=== PATIENT | male | born 1945 | race African-American/Black ===

== ENCOUNTER 2018-10-18 10:50 | Day surgery (SDC) | payer MEDICARE ==
[~2018-10-18 10:50] MED LIST: CHONDR SU A NA/HYALUR INTRAOC KIT (SURGICARE) ONE; EPINEPHRINE INJ/PF 1 MG/1 ML AMPULE ONE; KETOROLAC TROMETHAMINE 0.45% 4 DROP/0.4 ML DROPERETTE OD PRN; LIDOCAINE 1%/PHENYLEPHRINE 1.5% 1 ML VIAL ONE; MIDAZOLAM 2 MG/2 ML INJ ONE
[2018-10-18] MEDS: TETRACAINE HCL 0.5% OPH SOLN 0.6 ML DROPERETTE OD PRN ×3 (11:18→11:43)
[2018-10-18] MEDS: BESIFLOXACIN HCL 0.6% OPH SUSP 5 ML BOTTLE OD PRN ×4 (11:19→12:11)
[2018-10-18] MEDS ORDERED: MIDAZOLAM 2 MG/2 ML INJ ONE (11:19)
[2018-10-18] MEDS: CYCLOPENTOLATE 0.2%/PHENYLEPHRINE 1% OPH SOLN 2 ML OD PRN ×3 (11:19→11:40)
[2018-10-18] MEDS: TROPICAMIDE 1% OPH SOLN 3 ML OD PRN ×3 (11:19→11:40)
[2018-10-18] MEDS ORDERED: CHONDR SU A NA/HYALUR SOD 0.5 ML DISP.SYRIN ONE (12:02)
[2018-10-18] MEDS: TOBRAMYCIN SULFATE/DEXAMETH OPH OINTMENT 3.5 GM ONE ×2 (12:11)
== END 2018-10-18 12:52 | disposition home or self-care (01) ==
LOC: SC 10:50
PROVIDERS: ATTEND Ophthalmology
DX: H25.11 Age-related nuclear cataract, right eye (principal); H40.1132 Primary open-angle glaucoma, bilateral, moderate stage; I10 Essential (primary) hypertension
CPT/HCPCS: 66984; 0191T; C1783; V2630; J2250; J3490 ×3; A9270; J0171; J2370

== ENCOUNTER 2018-11-08 09:42 | Day surgery (SDC) | payer MEDICARE ==
[~2018-11-08 09:42] MED LIST changes: -CHONDR SU A NA/HYALUR INTRAOC KIT (SURGICARE) ONE; -EPINEPHRINE INJ/PF 1 MG/1 ML AMPULE ONE; -KETOROLAC TROMETHAMINE 0.45% 4 DROP/0.4 ML DROPERETTE OD PRN; +KETOROLAC TROMETHAMINE 0.45% 4 DROP/0.4 ML DROPERETTE OS PRN; -LIDOCAINE 1%/PHENYLEPHRINE 1.5% 1 ML VIAL ONE; -MIDAZOLAM 2 MG/2 ML INJ ONE
[2018-11-08] MEDS ORDERED: LIDOCAINE 1% INJ-PF (10 MG/ML) 30 ML SDV ONE (09:46)
[2018-11-08] MEDS ORDERED: CHONDR SU A NA/HYALUR INTRAOC KIT (SURGICARE) ONE (09:46)
[2018-11-08] MEDS ORDERED: EPINEPHRINE INJ/PF 1 MG/1 ML AMPULE ONE (09:46)
[2018-11-08] MEDS: CYCLOPENTOLATE 0.2%/PHENYLEPHRINE 1% OPH SOLN 2 ML OS PRN ×3 (10:15→10:39)
[2018-11-08] MEDS: TROPICAMIDE 1% OPH SOLN 3 ML OS PRN ×3 (10:15→10:39)
[2018-11-08] MEDS: TETRACAINE HCL 0.5% OPH SOLN 0.6 ML DROPERETTE OS PRN ×3 (10:15→10:44)
[2018-11-08] MEDS: BESIFLOXACIN HCL 0.6% OPH SUSP 5 ML BOTTLE OS PRN ×4 (10:16→11:13)
[2018-11-08] MEDS ORDERED: MIDAZOLAM 2 MG/2 ML INJ ONE (10:30)
[2018-11-08] MEDS: TOBRAMYCIN SULFATE/DEXAMETH OPH OINTMENT 3.5 GM ONE ×2 (11:13)
== END 2018-11-08 12:05 | disposition home or self-care (01) ==
LOC: SC 09:42
PROVIDERS: ATTEND Ophthalmology
DX: H25.12 Age-related nuclear cataract, left eye (principal); H40.1132 Primary open-angle glaucoma, bilateral, moderate stage; Z98.41 Cataract extraction status, right eye; I10 Essential (primary) hypertension
CPT/HCPCS: 0191T; 66984; 142; C1783; J0171; J2250; J3490; V2630

== ENCOUNTER → 2018-11-13 | Outpatient (CLI) | payer MEDICARE ==
--- NOTE | 2018-11-13 13:07 | EKG REPORT ---
SEVERITY:- BORDERLINE ECG - SINUS RHYTHM NONSPECIFIC ST-T CHANGES LATERAL LEADS : Confirmed by: Nic Puri MD 13-Nov-2018 13:06:48
== END ==
LOC: OD 10:50
PROVIDERS: ATTEND Nurse Practitioner Family
DX: I10 Essential (primary) hypertension (principal)
CPT/HCPCS: 93005; 93010

== ENCOUNTER 2019-04-27 09:41 | Emergency (ER) | payer MEDICARE ==
[2019-04-27 09:53] VITALS: BP 172/87
--- NOTE | 2019-04-27 10:19 | ER Document Report ---
HPI - HPI Time Seen by Provider: 04/27/19 10:14 Pain Level: Denies Context: Patient is a 74-year-old male presents to the emergency department with a chief complaint of a bump on his right tongue. States it started out as the size of a pimple about 2 weeks ago. He states that the area did pop and had a foul taste in his mouth but since then and is significantly grown and has become painful. Patient states that it is irregular and he is unable to put his dentures in place due to the growth and pain. He denies difficulty swallowing or throat tightness. Patient denies fever. Patient is a diabetic in which he states he takes oral medications for his diabetes. Patient denies any other complaints. States that he does not smoke or chew tobacco. Past Medical History - General Information source: Patient - Social History Smoking Status: Never Smoker Chew tobacco use (# tins/day): No Frequency of alcohol use: None Drug Abuse: None Lives with: Alone Family History: Reviewed & Not Pertinent Patient has suicidal ideation: No Patient has homicidal ideation: No - Past Medical History Cardiac Medical History: Reports: None Denies: Hx Heart Attack, Hx Hypertension Pulmonary Medical History: Reports: None Denies: Hx Asthma EENT Medical History: Reports: None Neurological Medical History: Reports: None. Denies: Hx Cerebrovascular Accident, Hx Seizures Endocrine Medical History: Reports: Hx Diabetes Mellitus Type 2 Renal/ Medical History: Reports: None. Denies: Hx Peritoneal Dialysis Malignancy Medical History: Reports None GI Medical History: Reports: None. Denies: Hx Hepatitis, Hx Hiatal Hernia, Hx Ulcer Musculoskeletal Medical History: Reports None Skin Medical History: Reports None Psychiatric Medical History: Reports: None Traumatic Medical History: Reports: None Infectious Medical History: Reports: None. Denies: Hx Hepatitis Past Surgical History: Reports: None. Denies: Hx Open Heart Surgery, Hx Pacemaker Vertical Provider Document - CONSTITUTIONAL Agree With Documented VS: Yes Exam Limitations: No Limitations General Appearance: No Apparent Distress - INFECTION CONTROL TRAVEL OUTSIDE OF THE [place] IN LAST 30 DAYS: No - HEENT HEENT: Atraumatic, Normocephalic, PERRLA Notes: Irregular appearing discolored growth on the right lateral tongue, slightly smaller than a marble. No drainage is noted. No swelling to the tongue. Airway is patent, no other lesion noted in the mouth. - NECK Neck: Normal Inspection - RESPIRATORY Respiratory: Breath Sounds Normal, No Respiratory Distress - CARDIOVASCULAR Cardiovascular: Regular Rate, Regular Rhythm - GI/ABDOMEN Gastrointestinal: Abdomen Soft, Abdomen Non-Tender - NEURO Level of Consciousness: Awake, Alert, Appropriate - DERM Integumentary: Warm, Dry, No Rash Course - Re-evaluation Re-evalutation: 04/27/19 10:18 Further investigation the bump on the right lateral tongue is suspicious for malignancy as it is irregular in appearance. It does not appear to be an abscess. I did explain to the patient the importance of following up with oral surgery or an ENT physician. I will give him multiple referrals to call for an appointment. I did explain to the patient that this will need to be removed or biopsied to rule out malignancy. I did explain to the patient to return to the emergency department if the growth started to compromise his airway or patient started to have swelling to his tongue. - Vital Signs Vital signs: Temp Pulse Resp BP Pulse Ox 99.2 F 77 16 172/87 H 98 04/27/19 09:52 04/27/19 09:52 04/27/19 09:52 04/27/19 09:52 04/27/19 09:52 Discharge - Discharge Clinical Impression: Tongue mass Condition: Stable Disposition: HOME, SELF-CARE Additional Instructions: Today you were seen in the emergency department for a bump on the tongue. The mass is suspicious for possible malignancy - such as cancer. I did refer you to our local ENT Dr. Zazueta. Please call his office today to make an appointment. The mass may need to be removed or at least biopsied. Please return to the emergency department if you develop any tongue swelling or difficulty swallowing. Referrals: JAZ CARO FNP-C [Primary Care Provider] - Follow up as needed BRANDO ZAZUETA DO [ASSOCIATE] - Follow up as needed
== END 2019-04-27 10:16 | disposition home or self-care (01) ==
LOC: ER 09:41
DX: K14.9 Disease of tongue, unspecified (principal); K08.89 Other specified disorders of teeth and supporting structures; E11.9 Type 2 diabetes mellitus without complications
CPT/HCPCS: 99282

== ENCOUNTER → 2019-06-18 | Outpatient (CLI) | payer MEDICARE ==
--- NOTE | 2019-06-18 13:45 | RADIOLOGY REPORT (SQ) ---
EXAM DESCRIPTION: U/S THYROID/SFT TISS HD NECK COMPLETED DATE/TIME: 06/18/2019 11:01 am REASON FOR STUDY: E07.89 OTHER SPECIFIED DISORDERS OF THYROID E07.89 OTHER SPECIFIED DISORDERS OF T HYROID COMPARISON: None. TECHNIQUE: Dynamic and static echols-scale images acquired of the thyroid gland. Selected additional c olor/power Doppler images recorded. All images stored to PACS. LIMITATIONS: None. FINDINGS: RIGHT LOBE: Prominent, 5.3 x 2.4 x 2 cm. Homogeneous echotexture. No cystic or solid mas ses. LEFT LOBE: Prominent, 5.2 x 2.1 x 1.8 cm. Homogeneous echotexture. No cystic or solid masses. ISTHMUS: 4.2 mm. Homogeneous echotexture. No cystic or solid masses. OTHER: No other significant finding. IMPRESSION: There is mild prominence of the thyroid. No thyroid masses are seen. TECHNICAL DOCUMENTATION: JOB ID: [id number] [employer]- All Rights Reserved Reading location - IP/workstation name: [email or web address]
== END ==
LOC: RAD 10:27
PROVIDERS: ATTEND Otolaryngology
DX: E07.89 Other specified disorders of thyroid (principal)
CPT/HCPCS: 76536

== ENCOUNTER 2020-01-11 08:32 | Day surgery (SDC) | payer MEDICARE ==
[~2020-01-11 08:32] MED LIST changes: -KETOROLAC TROMETHAMINE 0.45% 4 DROP/0.4 ML DROPERETTE OS PRN; +PROPOFOL INJ 200 MG/20 ML VIAL IV ONE
[2020-01-11] MEDS ORDERED: PROPOFOL INJ 200 MG/20 ML VIAL IV ONE (09:36)
[2020-01-11 10:35] VITALS: BP 160/91
--- NOTE | 2020-01-11 11:32 | Operative Report ---
Operative Report DATE OF SURGERY: 01/11/20 Operative Report: The risk, benefits and alternatives of the procedure including the risks of bleeding, perforation requiring surgery have been explained to the patient in detail and informed consent has been obtained. Patient is placed in a left, lateral decubital position. Timeout was called. Propofol medication is administered. Rectal examination is done which did not reveal any masses, tears or fissures. An Olympus videoscope was introduced into the patient's rectum. Scope was then carefully advanced all the way to the cecum. Cecum was identified by the usual anatomical landmarks including the ileocecal valve as well as the appendiceal office. Photodocumentation is obtained. Scope was then sequentially pulled back via the various segments of the colon including the ascending colon, hepatic lecture, transverse colon, splenic flexure, descending colon and finally into the rectosigmoid portions of the colon. Retroflexion maneuvers performed. PREOPERATIVE DIAGNOSIS: Personal history of polyp POSTOPERATIVE DIAGNOSIS: 2 transverse colon polyps removed with a snare polypectomy and retrieved. Diverticulosis without any evidence of diverticulitis. Internal hemorrhoids OPERATION: Colonoscopy with snare polypectomy SURGEON: BARBER CORDOBA ANESTHESIA: LMAC TISSUE REMOVED OR ALTERED: As noted above. COMPLICATIONS: None. ESTIMATED BLOOD LOSS: None. INTRAOPERATIVE FINDINGS: As noted above. PROCEDURE: Patient tolerated the procedure well. No immediate postprocedure complications are noted. Patient is discharged in good condition. Discharge date 01/11/2020. Discharge diet: Regular. Discharge activity: Regular. 2 to 3-week follow-up to discuss findings. Patient is instructed to call the office or proceed to the emergency room should there be any further problems or questions. 3 to 5-year surveillance colonoscopy.
== END 2020-01-11 10:41 | disposition home or self-care (01) ==
LOC: END 08:32
PROVIDERS: ATTEND Internal Medicine Gastroenterology
DX: Z12.11 Encounter for screening for malignant neoplasm of colon (principal); D12.3 Benign neoplasm of transverse colon; K57.30 Diverticulosis of large intestine without perforation or abscess without bleeding; K64.8 Other hemorrhoids; Z86.010 Personal history of colon polyps; E11.9 Type 2 diabetes mellitus without complications; I10 Essential (primary) hypertension; Z79.4 Long term (current) use of insulin; Z79.82 Long term (current) use of aspirin; Z79.899 Other long term (current) drug therapy; Z79.84 Long term (current) use of oral hypoglycemic drugs
CPT/HCPCS: 45385; 82962; 00811; J2704; 811